=== PATIENT | female | born 1950 | race Caucasian/White ===

== ENCOUNTER → 2021-11-29 | Outpatient (CLI) | payer OTHER ==
[~2021-11-29] MED LIST: DARVOCET-N 1001 EAC1 PO; ELAVIL PO; EXCEDRIN CAPLE1 EACH PO; LISINOPRIL10 MG PO; PRILOSEC 20 MG20 MG PO; REGLAN; SYNTHROID75 MCG PO; TUMS PO; ZOCOR40 MG PO
== END ==
LOC: MRI 11:04
PROVIDERS: ATTEND Nurse Practitioner
DX: M47.816 Spondylosis without myelopathy or radiculopathy, lumbar region (principal); M48.061 Spinal stenosis, lumbar region without neurogenic claudication; M54.42 Lumbago with sciatica, left side